=== PATIENT | female | born 1950 | race Caucasian/White ===

== ENCOUNTER 2019-03-10 08:45 | Outpatient (CLI) | payer MEDICARE, MEDICAID ==
[~2019-03-10] VITALS: Ht 162.6 cm; Wt 61.0 kg
[2019-03-10] VITALS (12 sets, daily range): BP systolic 122–140; BP diastolic 48–61
[~2019-03-10 08:45] MED LIST: DOCU-28 PO
[2019-03-10] MEDS ORDERED: nitroGLYCERIN 0.4mg SUBLingual tab SL PRN (10:45)
[2019-03-10] MEDS ORDERED: regadenoson 0.4mg/5ml syringe IV ONE (10:45)
[2019-03-10] MEDS ORDERED: aminophylline 250mg/10ml inj. IV PRN (10:45)
[2019-03-10] MEDS ORDERED: normal saline 500ml IV soln 500 ML IV ONE (10:45)
[2019-03-10] MEDS ORDERED: ASPI-611 PO (10:46)
[2019-03-10] MEDS ORDERED: TIOT18CA3 INH (10:46)
[2019-03-10] MEDS ORDERED: CALC-1051 PO (10:46)
[2019-03-10] MEDS ORDERED: ATOR10TA70 PO (10:46)
[2019-03-10] MEDS ORDERED: LEVO125T PO (10:46)
[2019-03-10] MEDS ORDERED: LOSA25TA41 PO (10:46)
[2019-03-10] MEDS ORDERED: LORA10TA65 PO (10:46)
== END 2019-03-10 23:59 | disposition home or self-care (01) ==
LOC: CARD DIAG 08:45 → RAD 23:59
PROVIDERS: ATTEND Internal Medicine Cardiovascular Disease
DX: R07.9 Chest pain, unspecified (principal); I10 Essential (primary) hypertension; R94.31 Abnormal electrocardiogram [ECG] [EKG]
CPT/HCPCS: 78452; 93017; 93306; A9500; J7040

== ENCOUNTER 2019-04-26 12:28 | Emergency (ER) | payer MEDICARE, MEDICAID ==
[~2019-04-26] VITALS: Ht 162.6 cm; Wt 61.4 kg
[~2019-04-26 12:28] MED LIST changes: +ASPI-611 PO; +ATOR10TA70 PO; +CALC-1051 PO; -DOCU-28 PO; +LEVO125T PO; +LORA10TA65 PO; +LOSA25TA41 PO; +TIOT18CA3 INH
[2019-04-26 12:35] VITALS: BP 141/67
--- NOTE | 2019-04-26 14:07 | NUR ---
pt out to xray via wheelchair with audit tech
--- NOTE | 2019-04-26 14:35 | NUR ---
Pt taken to restroom and stand by assist with toileting.
[2019-04-26] MEDS ORDERED: CYCL-1 PO (14:56)
[2019-04-26] MEDS ORDERED: ACET-2615 PO (14:56)
== END 2019-04-26 15:46 | disposition home or self-care (01) ==
LOC: ER 12:29
DX: M54.5 Low back pain (principal); M40.294 Other kyphosis, thoracic region; I10 Essential (primary) hypertension; J45.909 Unspecified asthma, uncomplicated; Z88.0 Allergy status to penicillin; Z79.899 Other long term (current) drug therapy; Z79.82 Long term (current) use of aspirin
CPT/HCPCS: 72100; 99283

== ENCOUNTER 2019-04-28 10:57 | Inpatient (IN) | payer MEDICARE, MEDICAID ==
[~2019-04-28] VITALS: Ht 162.6 cm; Wt 59.1 kg
[~2019-04-28 10:57] MED LIST changes: +ACET-2615 PO
[2019-04-28] MEDS ORDERED: HYDROcodone/acetaminophen 5mg/325mg tablet PO ONE (11:50)
[2019-04-28] MEDS ORDERED: ondansetron 4mg rapidly disintigrating tab PO ONE (11:50)
--- NOTE | 2019-04-28 12:20 | NUR ---
PT MEDICATED WITH PAIN MEDICATION NORCO 5 -325 MG AND ALSO ZOFRAN FOR NAUSEA ABLE TO SWALLOW MEDICATION .PT ASSISTED TO THE RESTROOM ,MINIMAL ASSISTANCE NEEDED .COLLECTED URINE SAMPLE ,STRONG ODOR.PT IHSS WORKER SITTING AT THE BEDSIDE.
[2019-04-28 12:44] LABS: CLARITY,URINE CLOUDY (Clear); COLOR,URINE YELLOW (Yellow); GLUCOSE, URINE NEGATIVE (Neg); KETONES,URINE TRACE mg/dl (Neg); LEUKOCYTE ESTERASE ,URINE SMALL (Neg); NITRITES, URINE POSITIVE (Neg); OCCULT BLOOD,URINE NEGATIVE (Neg); PROTEIN,URINE TRACE mg/dl (Neg); UROBILINOGEN,URINE 0.2 E.U/dL (0.2-1.0)
[2019-04-28 12:51] LABS: UA COLLECTION TYPE CLN CATCH MIDSTREAM
[2019-04-28 12:54] LABS: HYALINE CASTS 0-3 /LPF (NEGATIVE); MUCUS STRANDS NONE SEEN /LPF (Neg); SQUAMOUS EPITHELIAL CELL,UR MANY /LPF (FEW); TRANSITIONAL EPI CELLS,URINE FEW /HPF
[2019-04-28 12:55] LABS: BACTERIA,URINE 4+ /HPF (Neg); RBC,URINE 0-2 /HPF (0-2)
[2019-04-28 13:27] LABS: BASOPHILS % (AUTO) 0.7 % (0-1); EOSINOPHILS # (AUTO) 0.2 X10'3 (0-0.9); EOSINOPHILS % (AUTO) 2.5 % (0-6); HEMATOCRIT 27.5 % (35.0-45.0); HEMOGLOBIN 9.6 g/dl (12.0-16.0); LYMPHOCYTES # (AUTO) 0.7 X10'3 (1.1-4.8); LYMPHOCYTES % (AUTO) 11.3 % (21-51); MEAN CORPUSCULAR HEMOGLOBIN 29.2 PG (27.0-31.0); MEAN CORPUSCULAR HGB CONC 34.7 g/dL (33.0-36.5); MEAN PLATELET VOLUME 7.9 FL (7.4-10.4); MONOCYTES # (AUTO) 0.5 X10'3 (0-0.9); MONOCYTES % (AUTO) 7.4 % (2-12); NEUTROPHILS % (AUTO) 78.1 % (42-75); PLATELET COUNT 306 X10'3 (140-440); RED BLOOD COUNT 3.28 X10'6 (4.20-5.60); RED CELL DISTRIBUTION WIDTH 17.7 % (11.5-14.5); WHITE BLOOD COUNT 6.4 X10'3 (4.5-11.0)
[2019-04-28 13:47] LABS: ALANINE AMINOTRANSFERASE 26 U/L (12-78); ALBUMIN 3.3 G/DL (3.4-5.0); ALBUMIN/GLOBULIN RATIO 0.8 (1.1-1.5); ALKALINE PHOSPHATASE 67 IU/L (46-116); ANION GAP 15 (8-16); ASPARTATE AMINO TRANSFERASE 38 U/L (10-37); BILIRUBIN,TOTAL 0.4 MG/DL (0.1-1.0); BLOOD UREA NITROGEN 40 MG/DL (7-18); BUN/CREATININE RATIO 22.6 (6.6-38.0); CALCIUM 9.4 MG/DL (8.5-10.1); CHLORIDE 102 MMOL/L (99-107); CREATININE 1.77 MG/DL (0.40-0.90); GLUCOSE 82 MG/DL (70-104); LIPASE 159 U/L (73-393); SODIUM 141 MMOL/L (135-145); TOTAL CARBON DIOXIDE 24.5 MMOL/L (24-32); TOTAL PROTEIN 7.5 G/DL (6.4-8.2); eGFR 28 ML/MIN
[2019-04-28] MEDS ORDERED: CefTRIAXone/D5W-Rocephin 1gm 50 ML IV STA (13:56)
[2019-04-28] MEDS ORDERED: potassium chloride 10mEq ER tablet PO STA (13:56)
[2019-04-28] MEDS ORDERED: normal saline 1000ml 1,000 ML IV ONE (14:05)
[2019-04-28] MEDS ORDERED: potassium chloride 8mEq ER tablet PO STA (14:09)
--- NOTE | 2019-04-28 14:18 | NUR ---
clarified the order of pottassium with the pharmacy.
[2019-04-28] MEDS ORDERED: potassium Cl 20 mEq SR tablet PO ONE (14:20)
--- NOTE | 2019-04-28 14:35 | NUR ---
pt assisted to restroom by student nurse lisandro.pt disconnected from iv fluid and iv abx.
--- NOTE | 2019-04-28 14:49 | NUR ---
will admin the pottassium meds as pt comes back from restroom.
[2019-04-28] MEDS ORDERED: magnesium 2GM in 50ml NS 50 ML IV PRN (16:05)
[2019-04-28] MEDS ORDERED: potassium CL 10mEq/100ml bag 100 ML IV PRN ×2 (16:05)
[2019-04-28] MEDS ORDERED: acetaminophen 325mg tablet PO PRN ×2 (16:05)
[2019-04-28] MEDS ORDERED: potassium Cl 20 mEq SR tablet PO PRN (16:05)
[2019-04-28] MEDS ORDERED: ondansetron/PF 4mg/2ml inj IV PRN (16:05)
[2019-04-28] MEDS ORDERED: magnesium 4gm in 100ml NS 100 ML IV PRN (16:05)
[2019-04-28] MEDS ORDERED: HYDR25TA4 PO (16:05)
--- NOTE | 2019-04-28 16:44 | NUR ---
Received report from ER nurse
[2019-04-28] MEDS: HYDROcodone/acetaminophen 5mg/325mg tablet PO PRN (17:25)
[2019-04-28 18:00] VITALS: BP 148/61
--- NOTE | 2019-04-28 18:17 | NUR ---
bladder scanned pt and 200 ml in bladder
--- NOTE | 2019-04-28 18:26 | NUR ---
gave report to jeff vidal
--- NOTE | 2019-04-28 18:35 | NUR ---
Patient in room [facility]TH[facility] 4007. I have received report from Brittnee AVILA and had the opportunity to ask questions and assume patient care.
[2019-04-28] MEDS: docusate sod 100mg capsule PO SCH (19:58)
[2019-04-28] MEDS: potassium Cl 20 mEq SR tablet PO PRN (19:59)
--- NOTE | 2019-04-28 20:38 | NUR ---
Bladder scanned patient 296 ml
[2019-04-28 22:00] VITALS: BP 133/64
--- NOTE | 2019-04-28 22:00 | NUR ---
Used steady to transfer patient to [facility]. Patient voided 100ml. Patient states she is unable to void in bedpan.
[2019-04-29] MEDS: potassium Cl 20 mEq SR tablet PO PRN (00:19)
[2019-04-29] MEDS: HYDROcodone/acetaminophen 5mg/325mg tablet PO PRN ×4 (00:20→22:46)
[2019-04-29 06:00] VITALS: BP 148/68
--- NOTE | 2019-04-29 06:30 | NUR ---
Problems reprioritized. Patient report given, questions answered & plan of care reviewed with Huber AVILA.
--- NOTE | 2019-04-29 06:49 | NUR ---
Patient in room [facility]TH[facility] 4007. I have received report from Ute AVILA and had the opportunity to ask questions and assume patient care.
--- NOTE | 2019-04-29 07:19 | NUR ---
[facility] [id number] Re: Sadia Pedraza Will need morphine for pain, possibly Ativan for MRI toady.
[2019-04-29 07:20] LABS: BASOPHILS # (AUTO) 0.1 X10'3 (0-0.2); BASOPHILS % (AUTO) 0.8 % (0-1); EOSINOPHILS # (AUTO) 0.1 X10'3 (0-0.9); HEMATOCRIT 26.8 % (35.0-45.0); HEMOGLOBIN 9.4 g/dl (12.0-16.0); LYMPHOCYTES # (AUTO) 0.7 X10'3 (1.1-4.8); LYMPHOCYTES % (AUTO) 10.4 % (21-51); MEAN CORPUSCULAR HEMOGLOBIN 29.2 PG (27.0-31.0); MEAN CORPUSCULAR HGB CONC 34.9 g/dL (33.0-36.5); MEAN CORPUSCULAR VOLUME 83.5 FL (78-98); MEAN PLATELET VOLUME 7.9 FL (7.4-10.4); MONOCYTES # (AUTO) 0.5 X10'3 (0-0.9); MONOCYTES % (AUTO) 7.1 % (2-12); NEUTROPHILS # (AUTO) 5.4 X10'3 (1.8-7.7); NEUTROPHILS % (AUTO) 79.7 % (42-75); PLATELET COUNT 315 X10'3 (140-440); RED BLOOD COUNT 3.21 X10'6 (4.20-5.60); RED CELL DISTRIBUTION WIDTH 18.1 % (11.5-14.5); WHITE BLOOD COUNT 6.7 X10'3 (4.5-11.0)
[2019-04-29] MEDS ORDERED: morphine 2 MG/ML inj. syringe IV PRN (07:25)
[2019-04-29] MEDS ORDERED: LORazepam 2 mg/ml vial IV PRN (07:25)
[2019-04-29 07:34] LABS: ALBUMIN 3.1 G/DL (3.4-5.0); ANION GAP 14 (8-16); BLOOD UREA NITROGEN 30 MG/DL (7-18); BUN/CREATININE RATIO 18.9 (6.6-38.0); CHLORIDE 106 MMOL/L (99-107); CREATININE 1.59 MG/DL (0.40-0.90); GLUCOSE 69 MG/DL (70-104); MAGNESIUM 1.1 MG/DL (1.5-2.4); POTASSIUM 5.2 MMOL/L (3.5-5.1); SODIUM 141 MMOL/L (135-145); TOTAL CARBON DIOXIDE 21.2 MMOL/L (24-32); eGFR 32 ML/MIN
--- NOTE | 2019-04-29 08:32 | NUR ---
[facility] [id number] Re: Sadia Pedraza Home meds will need to be continued for DC.
[2019-04-29] MEDS: K and/or MAG REPLACEMENT MC SCH (08:34)
[2019-04-29] MEDS: magnesium Cl slow-release 64mg tablet PO PRN ×2 (08:37→20:45)
[2019-04-29] MEDS: docusate sod 100mg capsule PO SCH ×2 (08:37→20:45)
[2019-04-29 10:00] VITALS: BP 122/65
[2019-04-29] MEDS ORDERED: FLU VACC QS2019-20 36MOS UP/PF 60 MCG/0.5 ML SYRINGE IMVAC ONE (10:00)
[2019-04-29] MEDS ORDERED: pneumococcal 23-VAL P-sac vacc 25 mcg/0.5ml vial IMVAC ONE (10:00)
[2019-04-29] MEDS ORDERED: gadobutrol 10mmol/10ml inj. IV ONE (12:23)
[2019-04-29 18:00] VITALS: BP 114/53
[2019-04-29] MEDS: levoTHYROXINE 125mcg tablet PO SCH (18:01)
[2019-04-29] MEDS: calcium carbonate/vitamin D3 tablet PO SCH (18:01)
--- NOTE | 2019-04-29 18:24 | NUR ---
Problems reprioritized. Patient report given, questions answered & plan of care reviewed with Ute AVILA.
--- NOTE | 2019-04-29 18:28 | NUR ---
Patient in room [facility]TH[facility] 4007. I have received report from Huber AVILA and had the opportunity to ask questions and assume patient care.
--- NOTE | 2019-04-29 19:40 | NUR ---
Catheter placed for prolonged immobilization.
[2019-04-29 20:02] LABS: CLARITY,URINE CLEAR (Clear); COLOR,URINE YELLOW (Yellow); GLUCOSE, URINE NEGATIVE (Neg); KETONES,URINE 15 mg/dl (Neg); LEUKOCYTE ESTERASE ,URINE NEGATIVE (Neg); NITRITES, URINE NEGATIVE (Neg); OCCULT BLOOD,URINE TRACE-INTACT (Neg); PROTEIN,URINE NEGATIVE (Neg); UROBILINOGEN,URINE 0.2 E.U/dL (0.2-1.0)
[2019-04-29 20:08] LABS: UA COLLECTION TYPE STRAIGHT CATH
[2019-04-29 20:09] LABS: BACTERIA,URINE FEW /HPF (Neg); RBC,URINE 0-2 /HPF (0-2); SQUAMOUS EPITHELIAL CELL,UR FEW /LPF (FEW); WBC,URINE 0-4 /HPF (0-4)
[2019-04-29] MEDS: losartan 25mg tablet PO SCH (20:45)
[2019-04-29] MEDS: atorvastatin 10mg tablet PO SCH (20:45)
--- NOTE | 2019-04-29 21:11 | NUR ---
Patient received flu vaccine but wants to wait to receive the pneumonia vaccine till another day.
[2019-04-29 22:00] VITALS: BP 113/62
[2019-04-30] MEDS: HYDROcodone/acetaminophen 5mg/325mg tablet PO PRN ×3 (05:01→20:24)
[2019-04-30 06:00] VITALS: BP 86/51
--- NOTE | 2019-04-30 06:33 | NUR ---
Patient in room [facility]TH[facility] 4007. I have received report from Ute AVILA and had the opportunity to ask questions and assume patient care.
--- NOTE | 2019-04-30 06:39 | NUR ---
Problems reprioritized. Patient report given, questions answered & plan of care reviewed with Huber AVILA.
[2019-04-30 07:08] LABS: BASOPHILS # (AUTO) 0.1 X10'3 (0-0.2); EOSINOPHILS # (AUTO) 0.3 X10'3 (0-0.9); EOSINOPHILS % (AUTO) 4.2 % (0-6); HEMATOCRIT 26.9 % (35.0-45.0); HEMOGLOBIN 9.3 g/dl (12.0-16.0); LYMPHOCYTES # (AUTO) 0.8 X10'3 (1.1-4.8); MEAN CORPUSCULAR HEMOGLOBIN 29.2 PG (27.0-31.0); MEAN CORPUSCULAR HGB CONC 34.6 g/dL (33.0-36.5); MEAN CORPUSCULAR VOLUME 84.3 FL (78-98); MONOCYTES # (AUTO) 0.6 X10'3 (0-0.9); MONOCYTES % (AUTO) 8.6 % (2-12); NEUTROPHILS # (AUTO) 5.1 X10'3 (1.8-7.7); NEUTROPHILS % (AUTO) 74.2 % (42-75); PLATELET COUNT 308 X10'3 (140-440); RED BLOOD COUNT 3.19 X10'6 (4.20-5.60); WHITE BLOOD COUNT 6.8 X10'3 (4.5-11.0)
[2019-04-30 07:10] LABS: PARTIAL THROMBOPLASTIN TIME 29 SECONDS (22-32)
[2019-04-30 07:11] LABS: ANION GAP 10 (8-16); BLOOD UREA NITROGEN 25 MG/DL (7-18); BUN/CREATININE RATIO 15.5 (6.6-38.0); CALCIUM 9.1 MG/DL (8.5-10.1); CHLORIDE 105 MMOL/L (99-107); CREATININE 1.61 MG/DL (0.40-0.90); GLUCOSE 78 MG/DL (70-104); MAGNESIUM 1.2 MG/DL (1.5-2.4); POTASSIUM 4.6 MMOL/L (3.5-5.1); SODIUM 139 MMOL/L (135-145); eGFR 32 ML/MIN
[2019-04-30] MEDS: K and/or MAG REPLACEMENT MC SCH (07:27)
[2019-04-30] MEDS: aspirin 81mg tablet.DR PO SCH (08:00)
[2019-04-30] MEDS: calcium carbonate/vitamin D3 tablet PO SCH ×4 (08:00→17:04)
[2019-04-30] MEDS: levoTHYROXINE 125mcg tablet PO SCH (08:00)
[2019-04-30] MEDS: docusate sod 100mg capsule PO SCH ×2 (08:00→20:23)
[2019-04-30] MEDS: magnesium Cl slow-release 64mg tablet PO PRN (08:02)
[2019-04-30 10:00] VITALS: BP 107/52
--- NOTE | 2019-04-30 10:29 | NUR ---
patient needs a paracentesis but the order needed to say angio per IR dept. Order change per protocol.
--- NOTE | 2019-04-30 18:23 | NUR ---
Problems reprioritized. Patient report given, questions answered & plan of care reviewed with North AVILA.
--- NOTE | 2019-04-30 18:44 | NUR ---
Patient in room [facility]THO 4007. I have received report from AUSTIN Ngo and had the opportunity to ask questions and assume patient care.
[2019-04-30 19:42] VITALS: BP 103/55
[2019-04-30] MEDS: atorvastatin 10mg tablet PO SCH (20:26)
[2019-04-30] MEDS: losartan 25mg tablet PO SCH (20:30)
[2019-04-30 23:00] VITALS: BP_SYST 82; BP_SYST 91; BP_DIAS 43; BP_DIAS 47
[2019-05-01] MEDS: HYDROcodone/acetaminophen 5mg/325mg tablet PO PRN ×4 (05:48→22:09)
[2019-05-01 06:00] VITALS: BP 96/56
--- NOTE | 2019-05-01 06:05 | NUR ---
Patient in room ORTHO 4007. I have received report from AUSTIN Kat and had the opportunity to ask questions and assume patient care.
--- NOTE | 2019-05-01 06:24 | NUR ---
Problems reprioritized. Patient report given, questions answered & plan of care reviewed with AUSTIN Correa.
[2019-05-01] MEDS: K and/or MAG REPLACEMENT MC SCH (07:25)
[2019-05-01] MEDS: docusate sod 100mg capsule PO SCH ×2 (07:25→20:00)
[2019-05-01] MEDS: levoTHYROXINE 125mcg tablet PO SCH (07:25)
[2019-05-01] MEDS: aspirin 81mg tablet.DR PO SCH (07:25)
[2019-05-01] MEDS: magnesium Cl slow-release 64mg tablet PO PRN (07:25)
[2019-05-01 07:41] LABS: BASOPHILS % (AUTO) 0.5 % (0-1); EOSINOPHILS # (AUTO) 0.3 X10'3 (0-0.9); EOSINOPHILS % (AUTO) 3.6 % (0-6); HEMATOCRIT 28.4 % (35.0-45.0); HEMOGLOBIN 9.9 g/dl (12.0-16.0); LYMPHOCYTES # (AUTO) 0.7 X10'3 (1.1-4.8); LYMPHOCYTES % (AUTO) 9.4 % (21-51); MEAN CORPUSCULAR HEMOGLOBIN 29.4 PG (27.0-31.0); MEAN CORPUSCULAR HGB CONC 34.9 g/dL (33.0-36.5); MONOCYTES # (AUTO) 0.5 X10'3 (0-0.9); MONOCYTES % (AUTO) 7.4 % (2-12); NEUTROPHILS # (AUTO) 5.7 X10'3 (1.8-7.7); NEUTROPHILS % (AUTO) 79.1 % (42-75); PLATELET COUNT 289 X10'3 (140-440); RED BLOOD COUNT 3.38 X10'6 (4.20-5.60); WHITE BLOOD COUNT 7.1 X10'3 (4.5-11.0)
[2019-05-01 07:44] LABS: ALBUMIN 2.8 G/DL (3.4-5.0); ANION GAP 13 (8-16); BLOOD UREA NITROGEN 26 MG/DL (7-18); BUN/CREATININE RATIO 16.3 (6.6-38.0); CALCIUM 9.8 MG/DL (8.5-10.1); CHLORIDE 104 MMOL/L (99-107); GLUCOSE 84 MG/DL (70-104); MAGNESIUM 1.5 MG/DL (1.5-2.4); POTASSIUM 4.2 MMOL/L (3.5-5.1); SODIUM 139 MMOL/L (135-145); TOTAL CARBON DIOXIDE 22.4 MMOL/L (24-32); eGFR 32 ML/MIN
[2019-05-01 10:00] VITALS: BP 94/54
[2019-05-01] MEDS: calcium carbonate/vitamin D3 tablet PO SCH ×2 (11:45→17:22)
[2019-05-01 18:00] VITALS: BP 130/54
--- NOTE | 2019-05-01 18:27 | NUR ---
Problems reprioritized. Patient report given, questions answered & plan of care reviewed with AUSTIN Espinosa.
[2019-05-01] MEDS: losartan 25mg tablet PO SCH (21:18)
[2019-05-01] MEDS: atorvastatin 10mg tablet PO SCH (21:19)
[2019-05-01 22:00] VITALS: BP 116/54
[2019-05-02] MEDS: HYDROcodone/acetaminophen 5mg/325mg tablet PO PRN ×3 (03:35→13:15)
[2019-05-02 06:21] LABS: BASOPHILS % (AUTO) 0.7 % (0-1); EOSINOPHILS # (AUTO) 0.3 X10'3 (0-0.9); HEMATOCRIT 26.5 % (35.0-45.0); HEMOGLOBIN 9.2 g/dl (12.0-16.0); LYMPHOCYTES # (AUTO) 0.7 X10'3 (1.1-4.8); LYMPHOCYTES % (AUTO) 10.1 % (21-51); MEAN CORPUSCULAR HEMOGLOBIN 29.4 PG (27.0-31.0); MEAN CORPUSCULAR HGB CONC 34.6 g/dL (33.0-36.5); MEAN PLATELET VOLUME 7.9 FL (7.4-10.4); MONOCYTES # (AUTO) 0.6 X10'3 (0-0.9); MONOCYTES % (AUTO) 8.9 % (2-12); NEUTROPHILS # (AUTO) 5.1 X10'3 (1.8-7.7); NEUTROPHILS % (AUTO) 75.3 % (42-75); PLATELET COUNT 273 X10'3 (140-440); RED BLOOD COUNT 3.12 X10'6 (4.20-5.60); RED CELL DISTRIBUTION WIDTH 18.2 % (11.5-14.5); WHITE BLOOD COUNT 6.7 X10'3 (4.5-11.0)
[2019-05-02 06:33] LABS: ALBUMIN 2.7 G/DL (3.4-5.0); ANION GAP 13 (8-16); BLOOD UREA NITROGEN 29 MG/DL (7-18); BUN/CREATININE RATIO 17.3 (6.6-38.0); CALCIUM 10.6 MG/DL (8.5-10.1); CHLORIDE 106 MMOL/L (99-107); CREATININE 1.68 MG/DL (0.40-0.90); GLUCOSE 71 MG/DL (70-104); MAGNESIUM 1.6 MG/DL (1.5-2.4); POTASSIUM 4.1 MMOL/L (3.5-5.1); SODIUM 141 MMOL/L (135-145); TOTAL CARBON DIOXIDE 22.2 MMOL/L (24-32); eGFR 30 ML/MIN
--- NOTE | 2019-05-02 07:00 | NUR ---
Patient in room [facility]TH[facility] 4007. I have received report from LISA AVILA and had the opportunity to ask questions and assume patient care.
[2019-05-02 07:01] VITALS: BP 118/63
[2019-05-02 07:08] LABS: % IRON SATURATION 12 % (11-46); IRON 18 UG/DL (49-151); TOTAL IRON BINDING CAPACITY 148 UG/DL (259-388)
[2019-05-02] MEDS: K and/or MAG REPLACEMENT MC SCH (08:00)
[2019-05-02] MEDS: aspirin 81mg tablet.DR PO SCH (09:00)
[2019-05-02] MEDS: levoTHYROXINE 125mcg tablet PO SCH (09:00)
[2019-05-02] MEDS: calcium carbonate/vitamin D3 tablet PO SCH (09:00)
[2019-05-02] MEDS: docusate sod 100mg capsule PO SCH (09:00)
[2019-05-02 10:00] VITALS: BP 95/58
[2019-05-02] MEDS ORDERED: HYDR-4383 PO (11:09)
--- NOTE | 2019-05-02 14:08 | NUR ---
PT DC TO [facility], VERY PAINFUL, PROVIDED PN MEDS PRIOR TO TRANSFER, OTHERWISE DOING WELL...REPORT GIVEN TO ANNE-MARIE AT [facility]
== END 2019-05-02 13:45 | DRG 948 ==
LOC: ER 10:58 → ED HOLD 16:05 → ORTHO 4S 17:00
PROVIDERS: ADMIT Internal Medicine; ATTEND Internal Medicine
PROC: 3E0234Z Introduction of Serum, Toxoid and Vaccine into Muscle, Percutaneous Approach (ICD-10-PCS; principal; 2019-04-29)
PROC: 3E02340 Introduction of Influenza Vaccine into Muscle, Percutaneous Approach (ICD-10-PCS; 2019-04-29)
DX: G89.3 Neoplasm related pain (acute) (chronic) (principal); C79.51 Secondary malignant neoplasm of bone; N17.9 Acute kidney failure, unspecified; R18.8 Other ascites; M54.9 Dorsalgia, unspecified; E87.6 Hypokalemia; D64.9 Anemia, unspecified; E03.9 Hypothyroidism, unspecified; E78.5 Hyperlipidemia, unspecified; I10 Essential (primary) hypertension; J45.909 Unspecified asthma, uncomplicated; M47.816 Spondylosis without myelopathy or radiculopathy, lumbar region; M48.061 Spinal stenosis, lumbar region without neurogenic claudication; Z79.890 Hormone replacement therapy; Z79.899 Other long term (current) drug therapy; Z23 Encounter for immunization; Z88.0 Allergy status to penicillin; Z79.82 Long term (current) use of aspirin
CPT/HCPCS: 36415; 72100; 72158; 74176; 80048; 80053; 81001; 83540; 83550; 83605; 83690; 83735; 85025; 85610; 85730; 87040; 87081; 90732; 92508; 92616; 96365; 97110; 97112; 97163; 97530; 99285; A9585; G0378; J0696; J2270; Q2037